=== PATIENT | male | born 1995 | race African-American/Black ===

== ENCOUNTER 2025-01-01 19:21 | Inpatient (IN) | payer MEDICAID ==
[~2025-01-01] VITALS: Ht 170.2 cm; Wt 80.9 kg
[2025-01-01] MEDS ORDERED: ONDANSETRON HCL/PF 4 MG/2 ML VIAL ONE ×2 (19:48→19:59)
[2025-01-01] MEDS: ONDANSETRON HCL/PF 4 MG/2 ML VIAL IVP ONE (20:00)
[2025-01-01] MEDS: IV NS 0.9% 1,000 ML BAG IV ONE (20:00)
[2025-01-01 20:28] LABS: PLATELET COUNT (AUTO) 227 K/uL (150-450); RED BLOOD CELL COUNT(AUTO) 5.59 MIL/uL (4.5-6.0); RED CELL DISTRIBUTION WIDTH 13.4 % (11.5-15.0); WHITE BLOOD COUNT (AUTO) 7.2 K/uL (4.3-11.0)
[2025-01-01 20:32] LABS: ASPARTATE AMINOTRANSFERASE 22 U/L (15-37); CALCIUM, SERUM 9.2 mg/dL (8.5-10.1); SODIUM SERUM 136 mmol/L (136-145); TOTAL PROTEIN, SERUM 8.3 g/dL (6.4-8.2)
[2025-01-01 20:40] LABS: ALCOHOL, BLOOD < 3 mg/dL (0-10)
[2025-01-01 21:05] LABS: CREATININE 0.6 mg/dL (0.6-1.3); UREA NITROGEN, BLOOD 2 mg/dL (7-18)
[2025-01-01 23:00] LABS: APPEARANCE,URINE CLEAR (CLEAR); BLOOD, URINE TRACE-INTA Ery/uL (NEGATIVE); LEUKOCYTE ESTERASE ,URINE NEGATIVE (NEGATIVE); NITRITE, URINE NEGATIVE (NEGATIVE); UGLUCOSE NEGATIVE (NEGATIVE)
[2025-01-01 23:13] LABS: ADD URINE CULTURE NO; SQUAMOUS EPITHELIAL CELL,UR Few /HPF (None Seen)
[2025-01-01 23:17] LABS: BARBITURATE, URINE NEGATIVE (NEGATIVE); BENZODIAZEPINE, URINE NEGATIVE (NEGATIVE); CANNABINOID, URINE NEGATIVE (NEGATIVE); COCCAINE, URINE NEGATIVE (NEGATIVE); OPIATE, URINE NEGATIVE (NEGATIVE)
[2025-01-01 23:21] LABS: AMPHETAMINE, URINE POSITIVE (NEGATIVE)
[2025-01-02] MEDS ORDERED: METOCLOPRAMIDE HCL 10 MG/2 ML VIAL ONE ×2 (02:38→14:12)
[2025-01-02] MEDS: IV NS 0.9% 1,000 ML IV ONE (02:38)
[2025-01-02] MEDS: METOCLOPRAMIDE HCL 10 MG/2 ML VIAL IV ONE (02:38)
[2025-01-02] MEDS: METOCLOPRAMIDE HCL 10 MG/2 ML VIAL IM STA (14:50)
[2025-01-02] MEDS ORDERED: HALOPERIDOL LACTATE INJ 5 MG/ML VIAL ONE (15:08)
[2025-01-02] MEDS: HALOPERIDOL LACTATE INJ 5 MG/ML VIAL IV ONE (15:15)
[2025-01-02] MEDS: Magnesium 1GM/D5W 100ML PREMIX 100 ML IV SCH (15:30)
[2025-01-02] MEDS: POTASSIUM CHLORIDE 20 MEQ TAB.PRT.SR PO ONE (15:30)
[2025-01-02] MEDS: POTASSIUM CL. PREMIX PERIPHER. 50 ML IV SCH (15:30)
[2025-01-02] MEDS ORDERED: POTASSIUM CL. PREMIX PERIPHER. 50 ML ONE (18:41)
[2025-01-02 19:10] VITALS: O2SAT 99
[2025-01-02] MEDS ORDERED: ONDANSETRON HCL/PF 4 MG/2 ML VIAL IVP PRN (19:30)
[2025-01-02] MEDS ORDERED: ACETAMINOPHEN 325 MG TABLET PO PRN (19:30)
[2025-01-02] MEDS ORDERED: ENOXAPARIN SODIUM 40 MG/0.4 ML DISP.SYRIN SQ ONE (20:04)
[2025-01-02] MEDS ORDERED: PANTOPRAZOLE 40 MG VIAL ONE (20:04)
[2025-01-02] MEDS: PANTOPRAZOLE 40 MG VIAL IV SCH (20:08)
[2025-01-02] MEDS: ENOXAPARIN SODIUM 40 MG/0.4 ML DISP.SYRIN SQ SCH (20:09)
[2025-01-02 21:15] VITALS: BP 128/90; TEMP 97.7; O2SAT 98
[2025-01-02] MEDS: IV NS 0.9% 1,000 ML IV PRN (21:34)
[2025-01-03 16:00] VITALS: BP 167/110; TEMP 98.1; O2SAT 100
[2025-01-03 20:00] VITALS: BP 152/89; TEMP 97.8; O2SAT 95
[2025-01-03] MEDS ORDERED: ONDANSETRON HCL 4 MG/5 ML SOLUTION PO PRN (21:00)
[2025-01-04] MEDS: ONDANSETRON 4 MG TAB.RAPDIS SL PRN (03:04)
[2025-01-04] MEDS ORDERED: OLANZAPINE ZYDIS 5 MG TAB.RAPDIS PO PRN (09:30)
[2025-01-04] MEDS ORDERED: LORAZEPAM 1 MG TABLET PO PRN (09:30)
[2025-01-05] MEDS ORDERED: PANTOPRAZOLE 40 MG TABLET.DR PO SCH (09:00)
== END 2025-01-04 10:40 | disposition left against medical advice (07) | DRG 243 ==
LOC: ER 19:29 → MED 01-02 20:47
PROVIDERS: ADMIT Nurse Practitioner Acute Care; ATTEND Nurse Practitioner Acute Care
DX: K22.89 Other specified disease of esophagus (principal); R45.851 Suicidal ideations; F29 Unspecified psychosis not due to a substance or known physiological condition; R11.2 Nausea with vomiting, unspecified; E87.6 Hypokalemia; I10 Essential (primary) hypertension; F41.9 Anxiety disorder, unspecified; Z53.29 Procedure and treatment not carried out because of patient's decision for other reasons; F15.10 Other stimulant abuse, uncomplicated; F11.10 Opioid abuse, uncomplicated; Z20.822 Contact with and (suspected) exposure to COVID-19; K20.90 Esophagitis, unspecified without bleeding; R19.7 Diarrhea, unspecified
CPT/HCPCS: 36415; 80048-TC; 80076-TC; 81001; 83605-TC; 83690-TC; 85025-TC; 87081-TC; A4223; G0378; G0480; J1630; J1650; J2405; J2470; J2765; J3475; J3480; J7030; Q0162